=== PATIENT | female | born 1995 | race Caucasian/White ===

== ENCOUNTER 2025-06-13 11:29 | Outpatient (REF) | payer OTHER, SELFPAY ==
[2025-06-13 12:48] LABS: MANUAL DIFF FLAG NO
[2025-06-13 14:04] LABS: Hematocrit 39.6 % (37.0-47.0); Hemoglobin 12.8 g/dl (12.0-16.0); Imm Gran Abs Auto 0.03 X10*3/uL (0.00-0.03); Imm Gran Pct Auto 0.4 % (0.0-0.4); Lymphocytes Absolute Auto 2.4 X10*3/uL (1.2-4.9); Mean Corpuscular HGB Conc 32.3 g/dl (31.0-35.0); Mean Corpuscular Hemoglobin 27.6 pg (27.0-33.0); Mean Corpuscular Volume 85.5 fL (80.0-98.0); NRBC Abs Auto 0.000 X10*3/uL (0.0-0.012); NRBC Pct Auto 0.0 /100WBC (0.0-0.2); Platelet Count 380 X10*3/uL (160-400); Red Blood Count 4.63 X10*6/uL (4.20-5.50); White Blood Count 7.8 X10*3/uL (4.8-10.8)
--- OUTSIDE RECORDS SUMMARY | 2025-06-13 14:59 | XMS_ITS | Encounter Summary ---
Author Organization [facility] Address [address] [place] [address] Care Team Providers Care Biofuels Production Technician Name Role Phone Martha Martínez MD Primary Care Provider U Bowen Lawrence MD Primary Care Provider [phone] Encounter Details Date Type Department Care Team Description 12/19/2018 Release of Information Medical Records [address] [place] [address] Abstract, Provider Social History Tobacco Use Types Packs/Day Years Used Date Smoking Tobacco: Every Day Cigarettes 1 7 Smokeless Tobacco: Never Alcohol Use Standard Drinks/Week Comments No 0 (1 standard drink = 0.6 oz pur e alcohol) Sex Assigned at Date Recorded Not on file documented as of this encounter Plan of Treatment Not on file documented as of this encounter Visit Diagnoses Not on filedocumented in this encounter Care Teams Biofuels Production Technician Relationship Specialty Start Date End Date Martha Martínez MD PCP - General Internal Medicine 04/24/18 Bowen Pearl MD PCP - General Internal Medicine 01/31/24 documented as of this encounter
--- OUTSIDE RECORDS SUMMARY | 2025-06-13 14:59 | XMS_ITS | Encounter Summary ---
Author Organization [facility] Address [address] [place] [address] Care Team Providers Care Supervisor Covering And Lining Name Role Phone Bowen Caba MD Primary Care Provider [phone] Reason for Visit * Reason Onset Date Comments Vaginal Bleeding 06/18/2024 New pt Encounter Details Date Type Department Care Team Description 06/18/2024 Telephone OBGYN - [facility] [address] [place] [address] Tayler Rascon, TERRY [address] [place] [address] Vaginal Bleeding (New pt) Social History Tobacco Use Types Packs/Day Years Used Date Smoking Tobacco: Former Smokeless Tobacco: Never Alcohol Use Standard Drinks/Week Comments Yes 0 (1 standard drink = 0.6 oz pur e alcohol) occ Sex Assigned at Date Recorded Not on file documented as of this encounter Miscellaneous Notes * Telephone Encounter - Mine AnalystErlinda Benedict - 06/18/2024 3:09 PM EDT Pt calling because she has had a period / bleeding since early apr . She has no chief orthoptist. Dr caba her pcp referred her 04-09-24 and when called she declined chief orthoptist appt. Pt states she does have a hx of irregular periods and the only reason she is calling is because she read something that says if you pass clots larger than a quarter call the doctor . Pt states she uses a menstrual cup normally 1 a day but the last couple days she is changing it 2-3x. She is not in pain other than some days light cramping. She denies being on control, med changes , recent plan b , or . Pt advised if she is having heavy vaginal flow with clots larger than golf ball or she becomes symptomatic: sob, dizzy/lightheaded, and/or chest pain she needs to go to ed. Pt states understanding. She is aware bsr will call her to schedule new pt appt. * Telephone Encounter - Lexie Chowdary - 06/18/2024 2:25 PM EDT Chief Complaint/problem: Irregular menses - started bleeding a month ago and has not stopped since.Bleeding is much worse now with large clots. Uses a cup when bleeding and is changing it 3 times a day. Hair is also falling out. Also feeling constantly fatigued. New to OB - last seen in 2017 in [facility]. Referred by provider to get an annual exam earlier this year but she declined. How long has the patient had this problem? 1 month Pt???s MAP EDITOR provider: Tayler Rascon CNM Last menstrual period (LMP) or EDC (due date): N/A documented in this encounter Plan of Treatment Not on file documented as of this encounter Visit Diagnoses Not on filedocumented in this encounter Care Teams Supervisor Covering And Lining Relationship Specialty Start Date End Date Bowen Caba MD PCP - General Internal Medicine 01/31/24 documented as of this encounter
--- OUTSIDE RECORDS SUMMARY | 2025-06-13 14:59 | XMS_ITS | Clinical Summary ---
Author Organization [facility] Address [address] [address] Care Team Providers Care Front Of House Manager Name Role Phone Roger Valdez MD Primary Care Provider Social History Tobacco Use Types Packs/Day Years Used Date Smoking Tobacco: Never Assessed Comments Unknown Sex and Gender Information Value Date Recorded Sex Assigned at Female 10/07/2021 5:46 PM EST Legal Sex Female 1:46 AM EST Gender Identity Not on file Sexual Orientation Not on file Last Filed Vital Signs Vital Sign Reading Time Taken Comments Blood Pressure - - Pulse - - Temperature 37.4 C (99.4 F) 10/15/2019 3:55 PM EST Respiratory Rate 18 10/15/2019 3:55 PM EST Oxygen Saturation 97% 10/15/2019 3:55 PM EST Inhaled Oxygen Concentration - - Weight 49.9 kg (110 lb) 10/12/2019 10:23 PM EST Height 165.1 cm (5' 5 ) 10/12/2019 10:23 PM EST Body Mass Index 18.3 10/12/2019 10:23 PM EST Plan of Treatment Not on file Insurance [place] [place] [id number] Care Teams Front Of House Manager Relationship Specialty Start Date End Date Roger Valdez MD [address] [place] [phone] PCP - General 10/01/21
--- OUTSIDE RECORDS SUMMARY | 2025-06-13 14:59 | XMS_ITS | Encounter Summary ---
Author Organization [facility] Address [address] [place] [address] Care Team Providers Care Nozzle Worker Name Role Phone Martha Martínez MD Primary Care Provider U Bowen Lawrence MD Primary Care Provider [phone] Encounter Details Date Type Department Care Team Description 08/15/2018 Transfer Records Medical Records [address] [place] [address] Abstract, Provider Social History Tobacco Use Types [...] on filedocumented in this encounter Care Teams Nozzle Worker Relationship Specialty Start Date End Date Martha Martínez MD PCP - General Internal Medicine 04/24/18 Bowen Pearl MD PCP - General Internal Medicine 01/31/24 documented as of this encounter
--- OUTSIDE RECORDS SUMMARY | 2025-06-13 14:59 | XMS_ITS | Encounter Summary ---
Author Organization [facility] Address [address] [place] [address] Care Team Providers Care Manager Merchandise Name Role Phone Martha Martínez MD Primary Care Provider U Bowen Lawrence MD Primary Care Provider Encounter Details Date Type Department Care Team Description 02/11/2019 Transfer Records Medical Records [address] [place] [id number] Services, [facility] [address] [place] [address] Social History Tobacco Use Types Packs/Day Years [...] on filedocumented in this encounter Care Teams Manager Merchandise Relationship Specialty Start Date End Date Martha Martínez MD PCP - General Internal Medicine 04/24/18 Bowen Pearl MD PCP - General Internal Medicine 01/31/24 documented as of this encounter
--- OUTSIDE RECORDS SUMMARY | 2025-06-13 14:59 | XMS_ITS | Clinical Summary ---
Author Organization [facility] Address [address] [place] [address] Care Team Providers Care Hydraulic Mechanic Name Role Phone Bowen Pearl MD Primary Care Provider [phone] Allergies Active Allergy Reactions Severity Noted Date Comments Clonidine 09/07/2018 Trazodone Headaches 09/07/2018 Medications Medication Sig Dispensed Refills Start Date End Date Status gabapentin (NEURONTIN) 600 MG tablet Take 1 Tablet by mouth 2 times daily. 0 Active Cholecalciferol (Vitamin D) 50 MCG (1999) Tab Take 1 Tablet by mouth daily. 30 Tablet 5 04/11/2024 Active lorazepam (ATIVAN) 1 MG tablet Take 1 Tablet by mouth every 6 hours as needed for Anxiety. prn 2 Tablet 0 05/22/2024 Active Active Problems Problem Noted Date Plantar fasciitis, bilateral 04/09/2024 Neuropathy 04/09/2024 Asthma, intermittent 07/31/2018 Overview: Albuterol HFA, Qvar 40 History of pyelonephritis 07/31/2018 Opioid abuse 07/03/2018 Overview: On Methadone at [facility]) SHERRY (generalized anxiety disorder) 07/03 Overview: [facility] Major depression 07/03/2018 Overview: [facility] Family History Medical History Relation Name Comments Stroke Father Depression- Anx iety,Alcohol Abuse, Esophageal cancer Brain Cancer Maternal Grandfather Crohn's Disease No Known Problems Maternal Grandmother Bipolar Disorder Mother Crohn's Dis ease, Alcohol abuse No Known Problems Paternal Grandfather um known Stroke Paternal Grandmother multipl e. Dementia Mental Disorder Sister 1 No Known Problems Sister 2 has not he d contact since 2012 No Known Problems Sister 3 has not he d contact since 2012 Relation Name Status Comments Father Maternal Grandfather [...] Assigned at Date Recorded Not on file Last Filed Vital Signs Vital Sign Reading Time Taken Comments Blood Pressure 107/63 04/09/2024 9:20 AM EDT Pulse 78 04/09/2024 9:20 AM EDT Temperature 35.9 C (96.7 F) 04/09/2024 9:20 AM EDT Respiratory Rate 12 07/05/2018 4:26 PM EST Oxygen Saturation 98% 04/09/2024 9:20 AM EDT Inhaled Oxygen Concentration - - Weight 70.5 kg (155 lb 6.4 oz) 04/09/2024 9:20 A M EDT Height 152.4 cm (5') 04/09/2024 9:20 AM EDT Body Mass Index 30.35 04/09/2024 9:20 AM EDT Plan of Treatment Health Maintenance Due Date Last Done Comments Covid-19 Vaccine (#1) 06/09/1994 DTAP/TDAP/TD (1 - Tdap) 2012 PNEUMOCOCCAL VACCINE FOR HIG H RISK PATIENTS (#1) 2012 CERVICAL CANCER SCREENING 12/28/20192016, 12/27/2016 (External Completion) BMI CHECK/ADVISE 08/28/2024 04/09/2024, 07/05/2018 DEPRESSION SCREENING/FOLLOWUP 08/28/2024, 09/07/2018, 09/07/2018 (Completed), Additional history exists SOCIAL NEEDS SCREENING 08/28/2024 INFLUENZA (#1) 2025 09/07/2018 (Refused) BASELINE HEALTH EXAM 18-39 04/09/202904/09, 04/09/2024, 09/07/2018, Additional history exists CHOLESTEROL SCREENING 04/09/2029 04/09/2024 , 09/07/2018, 12/27/2016 (External Completion) Care Teams Hydraulic Mechanic Relationship Specialty Start Date End Date Bowen Pearl MD PCP - General Internal Medicine 01/31/24
--- OUTSIDE RECORDS SUMMARY | 2025-06-13 14:59 | XMS_ITS | Encounter Summary ---
Author Organization [facility] Address [address] [place] [address] Care Team Providers Care Platemaker Name Role Phone Martha Martínez MD Primary Care Provider U Bowen Lawrence MD Primary Care Provider [phone] Encounter Details Date Type Department Care Team Description 07/31/2018 Transfer Records Medical Records [address] [place] [address] Abstract, Provider Social History Tobacco Use Types [...] on filedocumented in this encounter Care Teams Platemaker Relationship Specialty Start Date End Date Martha Martínez MD PCP - General Internal Medicine 04/24/18 Bowen Pearl MD PCP - General Internal Medicine 01/31/24 documented as of this encounter
--- OUTSIDE RECORDS SUMMARY | 2025-06-13 14:59 | XMS_ITS | Encounter Summary ---
Author Organization [facility] Address [address] [place] [address] Care Team Providers Care Metal Fabricator Welder Name Role Phone Bowen Pearl MD Primary Care Provider [phone] Reason for Visit * Reason Onset Date Comments REFERRAL 05/02/2024 Encounter Details Date Type Department Care Team Description 05/02/2024 Telephone OBN - [address] [place] [phone] Bowen Pearl MD [address] [place] [phone] REFERRAL Social History Tobacco Use Types Packs/Day Years Used Date Smoking Tobacco: Former Smokeless Tobacco: Never Alcohol Use Standard Drinks/Week Comments Yes 0 (1 standard drink = 0.6 oz pur e alcohol) occ Sex Assigned at Date Recorded Not on file documented as of this encounter Miscellaneous Notes * Telephone Encounter - Susan Caballero - 05/02/2024 11:40 AM EDT Thank you for your referral to our AR[facility] PAD CEMENTER department, but your patient has declined the referral. documented in this encounter Plan of Treatment Not on file documented as of this encounter Visit Diagnoses Not on filedocumented in this encounter Care Teams Metal Fabricator Welder Relationship Specialty Start Date End Date Bowen Pearl MD PCP - General Internal Medicine 01/31/24 documented as of this encounter
--- OUTSIDE RECORDS SUMMARY | 2025-06-13 14:59 | XMS_ITS | Encounter Summary ---
Author Organization [facility] Address [address] [place] [address] Care Team Providers Care Certified Meeting Professional Name Role Phone Martha Martínez MD Primary Care Provider U Bowen Lawrence MD Primary Care Provider [phone] Encounter Details Date Type Department Care Team Description 07/04/2018 Release of Information Medical Records [address] [place] [address] Abstract, Provider Social History Tobacco Use Types [...] on filedocumented in this encounter Care Teams Certified Meeting Professional Relationship Specialty Start Date End Date Martha Martínez MD PCP - General Internal Medicine 04/24/18 Bowen Pearl MD PCP - General Internal Medicine 01/31/24 documented as of this encounter
[2025-06-13 16:23] LABS: Folate 6.5 ng/mL (> or = 4.0); Vitamin B12 400 pg/mL (200-900)
[2025-06-13 17:14] LABS: Alanine Aminotransferase 14 U/L (0-31); Albumin Level 4.5 g/dL (3.5-5.0); Alkaline Phosphatase 58 U/L (39-117); Anion Gap 14 (12-20); Aspartate Amino Transferase 17 U/L (5-31); Blood Urea Nitrogen 12 mg/dL (9-16); Calcium 9.4 mg/dL (8.4-10.2); Carbon Dioxide 22 mmol/L (22-29); Chloride 107 mmol/L (96-108); Estimated Glomerular Filt Rate > 60; Potassium 4.2 mmol/L (3.3-5.1); Sodium 139 mmol/L (135-145); Total Protein 7.8 g/dL (6.5-8.0)
[2025-06-14 09:43] LABS: Lyme Abs Screen <0.90 index
[2025-06-18 14:44] LABS: Anti Nuclear Antibody Screen POSITIVE (NEGATIVE); Anti Nuclear Antibody Titer 1:160 titer
== END 2025-06-13 11:30 | disposition home or self-care (01) ==
LOC: HO.LAB 11:29
PROVIDERS: PCP Student in an Organized Health Care Education/Training Program; Visit Provider Registered Nurse
DX: G37.9 Demyelinating disease of central nervous system, unspecified (principal); H53.9 Unspecified visual disturbance; Z79.899 Other long term (current) drug therapy; Z01.84 Encounter for antibody response examination
CPT/HCPCS: 36415; 80053; 82607; 82746; 84443; 85025; 85652; 86038; 86039; 86140; 86617; 86618

== ENCOUNTER 2025-06-13 11:29 | Outpatient (AMB) | payer OTHER, SELFPAY ==
--- NOTE | 2025-06-13 11:52 | MHC.OFFVIS ---
Intake Visit Reasons: Req to be seen by DONOR RELATIONS COORDINATOR/ Last seen Dr Goodrich 12/16/24 Allergies clonidine Allergy (Unknown, Verified 06/13/25 11:52) Unknown trazodone Allergy (Unknown, Verified 06/13/25 11:52) Unknown Medication List - Last Reconciled 06/13/25 by Sweta Hernandez CNP gabapentin 600 mg PO BID naproxen 500 mg PO BID norelgestromin-ethin.estradiol 150-35 mcg/24 hr 1 patch transdermal Q3D simvastatin 20 mg PO BEDTIME HPI Comments Details: 29-year-old RH woman initially seen in 11/2024 with c/o bilateral arm burning sensation that started around 2018 and visual symptom of entire field of vision like analog TV static, even with eyes closed, worsening since 2022. She had seen neurologists and had testing done in the past, including brain MRI and nerve conduction studies that were apparently negative. She was here with worsening parasethesias and visual symptoms over the last few months. She did not have testing done that was ordered at last appointment. She says when the burning sensation first started, it affected bilateral upper arms and thighs, but thigh pain subsided and was then primarily affecting lateral part of arms, L > R. Burning sensation was now affecting her face, particularly the left side, and above lip and forehead. The burning sensation would come and go, but happened every day. Gabapentin helped, but she was finding twice a day dosing was not working as well anymore and she was sometimes having to take additional 300mg in the afternoon to help manage pain. She had some numbness and tingling in hands and feet everyday that would come and go. Sugar or alcohol may make symptoms worse. Visual disturbance described as TV static continued, but also included shadowy areas, rippling when looking at objects, and episodic movement distortions. She reports that previous eye exams have not found any structural or ocular causes for symptoms. Sleep was up and down. Mood was okay, but admits she can be irritable at times. 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 She was currently being treated for R plantar fasciitis and had R foot MRI before starting injections. She had copy of report with her, and results are below. 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 She also reports family history of autoimmune conditions - Raynaud's, scleroderma, arthritis [facility] Medical History (Updated 06/13/25 @ 12:10 by Sweta Hernandez CNP) Visual snow syndrome Neuropathy Somatization disorder Review of Systems Const Denies chills, Denies daytime sleepiness, Reports difficulty sleeping, Denies fatigue, Denies fever(s), Denies frequent falls, Denies headache(s), Denies increased appetite, Denies poor appetite, Denies snoring, Denies weakness, Denies weight gain and Denies weight loss Eyes Reports as per HPI ENT Denies vertigo, Denies dizziness and Denies headache(s) Card Denies chest pain at rest, Denies chest pain with activity, Denies syncope, Denies leg edema and Denies palpitations Resp Denies snoring GI Denies constipation, Denies heartburn, Denies diarrhea and Denies nausea Denies urinary frequency, Denies urinary incontinence and Denies urinary urgency Musc Denies abnormal gait, Reports numbness and Reports tingling Skin/Breast Denies dry skin and Denies rash Neuro Denies abnormal gait, Denies vertigo, Denies dizziness, Denies syncope, Denies frequent falls, Denies headache(s), Denies lack of coordination, Reports memory loss, Reports numbness, Denies restless legs, Denies seizure-like activity, Reports tingling, Reports paresthesias, Denies tremor(s), Denies weakness and Reports other (balance difficulty) Psych Reports anxiety, Denies depression, Denies auditory hallucinations, Reports memory loss, Denies visual hallucinations and Denies suicidal ideation Endo Denies fatigue and Denies palpitations Physical Exam Const Other: General Appearance:? normal, in no acute distress. Skin:? no rashes, no significant birthmarks. Heart:? S1, S2 normal, no murmurs. Lungs:? clear anteriorly and posteriorly. Extremities:? no edema. Psych:? alert, oriented, cognitive function intact, cooperative with exam. Neuro Other: Mental Status:?Normal attention, orientation, memory and affect.? Cranial Nerves:?Pupils are equal, round and reactive to light. External occular muscles are intact. Visual damon are full. Face is symmetrical. Facial sensations are normal. Tongue is midline. Palate elevates symmetrically. Shoulder shrugging is normal. Hearing to bedside conversation is normal. Sensory Exam:?....? Coordination:?No ataxia,?no titubation.? Gait Exam: Within normal limits. Cerebellar Signs:?Vajltf-na-ibgr is okay. Extrapyramidal System:?No tremor, rigidity with normal facial expressions.? Pronator Drift:?Not present.? Involuntary Movements:?No tremors seen.? Speech:?Normal.? Results Reviewed Results Reviewed: MRI R foot 03/18/2025: thickening and high signal of the plantar fascia with surrounding edema compatible with plantar fasciitis. increased size and signal of the medial plantar nerve suggesting neuritis. No mass or fluid collection seen within the tarsal tunnel. High signal within the flexor digitorum brevis muscle may be related to plantar fasciitis or could reflect developing atrophy, could also be secondary to medication injection. Posterior tibial tendinosis without tear (reported) Assessment & Plan Assessment & Plan (1) Demyelinating disease: Code(s): G37.9 - Demyelinating disease of central nervous system, unspecified Category: Medical Plan: Brain MRI W&WO contrast ordered r/o demyelinating disease Reviewed labs ordered Discussed NCV/EMG UE and LE, declining at this time (she reports having test done multiple times in the past which caused discomfort and apparently did not reveal any findings). Increase gabapentin 600mg 1 tablet twice a day and 1/2 tablet midday. (2) Paresthesia: Code(s): R20.2 - Paresthesia of skin Category: Medical (3) Visual changes: Code(s): H53.9 - Unspecified visual disturbance Category: Medical Plan . Orders: Orders MR head/brain wo/w con Today G37.9 - Demyelinating disease of central nervous system, unspecified C Reactive Protein Today G37.9 - Demyelinating disease of central nervous system, unspecified BHARGAVI Reflex Titer and Pattern Today G37.9 - Demyelinating disease of central nervous system, unspecified Lyme IgG/IgM w/reflex to WB Today G37.9 - Demyelinating disease of central nervous system, unspecified Complete Blood Count Auto Diff Today G37.9 - Demyelinating disease of central nervous system, unspecified Comprehensive Met. Panel Today G37.9 - Demyelinating disease of central nervous system, unspecified TSH reflex Free T4 Today G37.9 - Demyelinating disease of central nervous system, unspecified Vitamin B12 and Folate Today G37.9 - Demyelinating disease of central nervous system, unspecified Erythrocyte Sedimentation Rate Today G37.9 - Demyelinating disease of central nervous system, unspecified Medications: Changed From gabapentin 600 mg PO BID 120 tabs 0RF To gabapentin 600 mg orally 1 tablet twice a day and 1/2 tablet midday; 225 tabs 1RF 90 days Coding Level of Care Code Est Pt Level 4 (90089) Diagnoses Demyelinating disease G37.9 Paresthesia R20.2 Visual changes H53.9
--- OUTSIDE RECORDS SUMMARY | 2025-06-13 14:16 | XMS_ITS | Patient Health Record ---
Author Organization [facility] [address] [place] [address] [address] [address] [address] [place] [id number] Support Name Relationship Address Phone Nurys Yaneth Guarantor Unknown [phone] Allergies No Known Allergies Reason For Referral No Information Medications Medication SIG (Take, Route, Frequency, Duration) Notes Start Date End Date Status Gabapentin Active Suboxone Active SEROquel Active Problems Problem Type SNOMED Code ICD Code Onset Dates Problem Status W/U Status Risk Notes Problem Skin sensation disturbance (42965903) Paresthesia of left arm and leg (R20.2) Active confirmed 25 year old female who presents for evaluation after subacute onset of left arm and leg paresthesias which some and go since July,. Neurologic exam is largely non focal with exception of decreased pin prick in the left upper extremity, more so on the medial aspect around the T1-C8 dermatomes. THere is also burning paresthesia of the left upper leg involving L2-L3 dermatomes. no extension into the feet. EMG is negative of both the leg and arm MRI of the entire neuro axis w/w/o contrast reportedly does not show any demyelination unclear etiology of symptoms consider referral to senior clinical data coordinator for ?fibromyalgia Plan Of Treatment Pending Test Test Name Order Date LYME DISEASE AB W/REFL TO BLOT (IGG, IGM ) 09/29/2021 BHARGAVI MULTIPLEX W/REFLEX 11 AB CASCADE 09/2021 Insurance Providers Payer Name Payer Address Payer Phone Subscriber Number Group Number Insured Name Patient Relationship to Insured Coverage Start Date Coverage End Date [facility] [address] [address] [place] [phone] [id number] Yaneth Estrada Self - patient is the insured Medical (General) History Medical History History ICD Code anxiety Hospitalization History Reason Date(Month/Year) lyme disease with spinal meningitis kidney infection 2010
--- OUTSIDE RECORDS SUMMARY | 2025-06-13 14:16 | XMS_ITS | Clinical Summary ---
Author Organization [facility] Address [address] [place] [address] Phone Care Team Providers Care Gravity Prospecting Supervisor Name Role Phone Bowen Pearl MD Primary Care Provider [phone] Allergies Active Allergy Reactions Criticality Noted Date Comments Clonidine 09/07/2018 Trazodone Headache 09/07/2018 Medications cholecalcifero l (VITAMIN D-3) 50 mcg (2,000 unit) tablet Route: Take 1 Tablet by mouth daily. - Oral 04/11/20 24 Active gabapentin (NEURONTIN) 600 mg tablet Route: Take 1 Tablet by mouth 2 times daily. - Oral Active simvastatin (ZOCOR) 20 mg tablet Take 1 tablet (20 mg total) by mouth at bedtime. 30 each 5 09/02/19 25 Active minoxidiL (LONITEN) 2.5 mg tablet Take 1 tablet (2.5 mg total) by mouth 1 (one) time each day. Active norelgestromin -ethinyl estradiol (ORTHO EVRA) 150-35 mcg/[address] 1 patch on the skin 1 (one) time per week. Apply 1 patch each week. 16 patch 4 11/28/19 25 026 Active Suboxone 8-2 mg per SL film PLACE 1 FILM SUBLINGUALLY ONCE A DAY 12/10/19 25 Active LORazepam (ATIVAN) 1 mg tablet Take 1-2 tablets (1-2 mg total) by mouth See administration instructions. Take 30 minutes prior to procedure. 2 tablet 06/02/20 25 025 Active LORazepam (ATIVAN) 1 mg tablet Take 1 tablet (1 mg total) by mouth every 8 (eight) hours if needed for anxiety (As needed for dental procedure) for up to 6 doses. Route: Take 1 Tablet by mouth every 6 hours as needed for Anxiety. prn - Oral Max Daily Amount: 3 mg 6 tablet 03/24/20 25 025 Discontinu ed(Reorder ) naproxen (NAPROSYN) 500 mg tablet Take 1 tablet (500 mg total) by mouth 2 (two) times a day. 60 each 04/24/20 25 025 LORazepam (ATIVAN) 1 mg tablet Take 1 tablet (1 mg total) by mouth every 8 (eight) hours if needed for anxiety (As needed for dental procedure) for up to 6 doses. Route: Take 1 Tablet by mouth every 6 hours as needed for Anxiety. prn - Oral Max Daily Amount: 3 mg 6 tablet 05/27/20 25 025 Discontinu ed(Dupdrissa te order) Hospital, Clinic, or Other Facility Administered Medication Ordered Dose Route Frequency Start Date End Date Status dexAMETHasone (PF) (DECADRON) injection 5 mgIndications:Planta r fascial fibromatosis 5 mg IAtc Once 07/16/2024 Active triamcinolone acetonide (KENALOG-40) 40 mg/mL injection 40 mgIndications:Planta r fascial fibromatosis 40 mg IAtc Once 07/16/2024 Active lidocaine (PF) (XYLOCAINE-MPF) 1 % injection 0.5 mLIndications:Planta r fascial fibromatosis .5 mL Once PRN Procedure 06/04/2025 06/04/2025 Ended lidocaine (PF) (XYLOCAINE-MPF) 1 % injection 0.5 mLIndications:Planta r fascial fibromatosis .5 mL Once PRN Procedure 06/04/2025 06/04/2025 Ended triamcinolone acetonide (KENALOG-40) 40 mg/mL injection 20 mgIndications:Planta r fascial fibromatosis 20 mg Once PRN Procedure 06/04/2025 06/04/2025 Ended triamcinolone acetonide (KENALOG-40) 40 mg/mL injection 20 mgIndications:Planta r fascial fibromatosis 20 mg Once PRN Procedure 06/04/2025 06/04/2025 Ended Active Problems Problem Noted Date Diagnosed Date Neuropathy 05/27/2024 Plantar fasciitis, bilateral 05/27/2024 SHERRY (generalized anxiety disorder) 07/03/2018 Overview (05/27/2024): BHN Opioid abuse ([facility] V24, [facility] V28) 07/03/20 18 Overview (05/27/2024): On Methadone at [facility]) Depression 12/16/2016 Overview (08/29/2024): BHN NEC Resolved Problems Problem Noted Date Diagnosed Date Resolved Date Asthma, intermittent 07/31/2018 025 Overview (05/27/2024): Albuterol HFA, Qvar 40 Cigarette smoker 12/16/2016 08/29/2024 Encounters Date Type Department Care Team Description 06/04/2025 3:30 PM EDT Office Visit Orthopedic Surgery [facility] [address] [phone] César Reed DPM Plantar fascial fibromatosis (Primary Dx); Equinus contracture of ankle; Acquired hallux valgus of left foot; Acquired hallux valgus of right foot 04/24/2025 3:30 PM EDT Office Visit Orthopedic Surgery - [place] [address] [phone] César Reed, DPM Plantar fascial fibromatosis (Primary Dx); Equinus contracture of ankle 04/16/2025 6:00 PM EDT Treatment [facility] [address] [phone] Jeri Jacobo PT Plantar fascial fibromatosis (Primary Dx) 03/18/2025 1:45 PM EDT Office Visit Orthopedic Surgery [facility] [address] [phone] Reed, Christopher M, DPM Plantar fascial fibromatosis (Primary Dx); Equinus contracture of ankle; Acquired hallux valgus of left foot 03/17/2025 5:59 PM EDT - 03/17/2025 11:59 PM EDT Hospital Encounter [facility] MRI [address] [place] [id number] Plantar fascial fibromatosis Discharge Disposition: Home or Self Care 03/17/2025 5:55 PM EDT - 03/17/2025 11:59 PM EDT Hospital Encounter [facility] MRI [address] [place] [phone] Plantar fascial fibromatosis Discharge Disposition: Home or Self Care from Last 3 Months Surgical History Surgery Date Site/Laterality Comments OTHER SURGICAL HISTORY PROCEDURE: DENIES PREVIOUS SURGERY Medical History Medical History Date Comments Opioid abuse (CMS/HCC V24, C MS/HCC V28) 07/03/2018 DX:Opioid abuse (HCC); COMME NT: On Methadone at [facility]) SHERRY (generalized anxiety disorder) 07/03/2018 DX:SHERRY (generalized anxiety disorder) Major depression 07/03/2018 DX:Major depres alin History of pyelonephritis 07/31/2018 DX:His tory of pyelonephritis Asthma, intermittent 07/31/2018 DX:Asthma, intermittent; COMMENT: Albuterol HFA, Qvar 40 Family History Medical History Relation Name Comments Stroke Father Depression- Anx iety,Alcohol Abuse, Esophageal cancer Brain cancer Maternal Grandfather Crohn's Disease No Known Problems Maternal Grandmother Bipolar disorder Mother Crohn's Dis ease, Alcohol abuse No Known Problems Paternal Grandfather um known Stroke Paternal Grandmother multipl e. Dementia Mental illness Sister 1 No Known Problems Sister 2 has not he d contact since 2012 No Known Problems Sister 3 has not he d contact since 2012 Breast cancer Neg Hx Colon cancer Neg Hx Kidney cancer Neg Hx Ovarian cancer Neg Hx Pancreatic cancer Neg Hx Uterine cancer Neg Hx Relation Name Status Comments Father Maternal Grandfather Maternal Grandmother Mother Alive Paternal Grandfather Paternal Grandmother Sister 1 Alive Sister 2 Alive Sister 3 Alive Social History Tobacco Use Types Packs/Day Years Used Date Smoking Tobacco: Former Smokeless Tobacco: Never Alcohol Use Standard Drinks/Week Comments Yes 0 (1 standard drink = 0.6 oz pur e alcohol) Comments No Sex and Gender Information Value Date Recorded Sex Assigned at Female 06/19/2024 8:10 AM EDT Legal Sex Female 8:11 PM EST Gender Identity Not on file Sexual Orientation Not on file Obstetrics History Para Term AB IAB SAB Ectopic Multiple Livin g Live Births 0 0 0 0 0 0 0 0 Last Filed Vital Signs Vital Sign Reading Time Taken Comments Blood Pressure 122/85 11/27/2024 11:44 AM EDT Pulse 76 11/27/2024 11:44 AM EDT Temperature 37 C (98.6 F) 07/11/2024 2:02 PM EST Respiratory Rate 16 11/27/2024 11:44 AM EDT Oxygen Saturation 99% 10/10/2024 3:59 PM EST Inhaled Oxygen Concentration - - Weight 68 kg (150 lb) 03/18/2025 2:07 PM EDT Height 152.4 cm (5') 03/18/2025 2:07 PM EDT Body Mass Index 29.29 03/18/2025 2:07 PM EDT Plan of Treatment Upcoming Encounters Date Type Department Care Team (Late st Contact Info) Description 06/19/2025 11:00 AM EDT Office Visit Orthopedic Surgery - [place] [address] [phone] César Reed DPM [address] [phone] 07/23/2025 3:00 PM EST Office Visit [facility] [address] [phone] Dean Soler MD [address] [phone] Health Maintenance Due Date Last Done Comments DTaP,Tdap,and Td Vaccines (1 - Tdap) 2012 Hepatitis A Vaccines (1 of 2 - Risk 2-dose series) 2012 Hepatitis B Vaccines (1 of 3 - 19+ 3-dose series) 2012 HPV Vaccines (1 - 3-dose SCD M series) 2020 Social Influencers of Health Screening 05/27/2024 Depression Screening 08/28/2024 COVID-19 Vaccine (1 - 2023-2 5 season) 2025 Influenza Vaccine (#1) 2025 Cervical Cancer Screening: HPV 08/29/2029 08/29/2024 Cholesterol Screening (Lipid Panel) 08/29/2029 08/29/2024, 04/09/2024, 04/09/2024 RSV Immunization Adult Patients (1 - 1-dose 75+ series) 2068 HIV Screening Completed 09/07/2018 Hepatitis C Screening Completed 04/09/2024 HIB Vaccines Aged Out No longer eligi ble based on patient's age to complete this topic IPV Vaccines Aged Out No longer eligi ble based on patient's age to complete this topic MMR Vaccines Aged Out No longer eligi ble based on patient's age to complete this topic Meningococcal ACWY Vaccine Aged Out N o longer eligible based on patient's age to complete this topic Meningococcal B Vaccine Aged Out No l onger eligible based on patient's age to complete this topic Pneumococcal Vaccine: Pediatrics (0 to 5 Years) and At-Risk Patients (6 to 49 Years) Aged Out No longer eligible b ased on patient's age to complete this topic RSV Immunization Patients Under 20 months Aged Out No longer eligible b ased on patient's age to complete this topic Varicella Vaccines Aged Out No longer eligible based on patient's age to complete this topic Procedures Procedure Name Priority Date/Time Associated Diagnosis Comments INJECTION TENDON OR LIGAMENT Routine 06/04/2025 3:30 PM EDT Plantar fascial fibromatosis INJECTION TENDON OR LIGAMENT Routine 06/04/2025 3:30 PM EDT Plantar fascial fibromatosis MR FOOT WO CONTRAST RIGHT Routine 03/17/2025 7:23 PM EDT Plantar fascial fibromatosis MR FOOT WO CONTRAST LEFT Routine 03/17/2025 6:55 PM EDT Plantar fascial fibromatosis LIPID PANEL WITH REFLEX TO DIRECT LDL Routine 08/29/2024 2:59 PM EST Encounter for lipid screening for cardiovascular disease HPV WITH REFLEX GENOTYPE Routine 08/29/2024 2:53 PM EST Women's annual routine gynecological examination HEPATITIS C SCREENING Routine 04/09/2024 HIV SCREENING Routine 09/07/2018 from Last 3 Months or Most Recently Relevant to Health Maintenance Results * Injection tendon or ligament (06/04/2025 3:30 PM EDT) César Ramos DPM - 06/04/2025 3:30 PM EDT César Reed DPM 06/04/2025 4:38 PM Injection tendon or ligament Indications: pain Details: 25 G needle Medications: 0.5 mL lidocaine (PF) 1 %; 20 mg triamcinolone acetonide 40 mg/mL Informed Consent: Site: Foot ligament tendon César Reed DPM IN CLINIC/BEDSIDE ORDERAB LES Final Result * Injection tendon or ligament (06/04/2025 3:30 PM EDT) César Ramos DPM - 06/04/2025 3:30 PM EDT César Reed DPM 06/04/2025 4:38 PM Injection tendon or ligament Indications: pain Details: 25 G needle Medications: 0.5 mL lidocaine (PF) 1 %; 20 mg triamcinolone acetonide 40 mg/mL Informed Consent: Site: Foot ligament tendon César Reed DPM IN CLINIC/BEDSIDE ORDERAB LES Final Result * MR Foot wo Contrast Right (03/17/2025 7:23 PM EDT) Anatomical Region Laterality Modality Lower Extremities, Foot Right Magnetic Resonance 03/18/2025 8:37 PM EDT Impressions 03/18/2025 8:41 PM EDT Thickening and high signal of the plantar fascia with surrounding edema compatible with plantar fasciitis. Increased size and signal of the medial plantar nerve suggesting neuritis. No mass or fluid collection seen within the tarsal tunnel. High signal within the flexor digitorum brevis muscle may be related to plantar fasciitis or could reflect developing atrophy. This could also be secondary to medication injection. Posterior tibial tendinosis without tear. -------- FINAL REPORT -------- Dictated By: KRISTIAN KHAN Dictated Date: 03/18/2025 20:37 ET Assigned Physician: KRISTIAN KHAN Reviewed and Electronically Signed By: KRISTIAN KHAN Signed Date: 03/18/2025 20:41 ET Workstation ID: [id number] Transcribed By: Self Edit Transcribed Date: 03/18/2025 20:37 ET Narrative 03/18/2025 8:41 PM EDT PROCEDURE: Right foot MRI INDICATION: Chronic fasciitis TECHNIQUE: Multiplanar, multisequence MRI of the right foot Without contrast. COMPARISON: No priors available. FINDINGS: No fracture or suspicious marrow replacing lesion. Tibiotalar and subtalar articular cartilage is maintained. No joint effusions. Lisfranc ligament complex and intermetatarsal ligaments are intact. Ankle ligaments are intact. Peroneal tendons are intact. Flexor and extensor tendons are intact. Posterior tibial tendinosis without tear. Achilles tendon is intact. Plantar fascia is thickened and high in signal with surrounding edema in the plantar subcutaneous fat. There is edema in the soft tissues along the plantar aspect of the calcaneus and extending into the medial aspect of the hindfoot. Edema is predominantly within the flexor digitorum brevis muscle, extending into the abductor digit minimi muscle. There is increased size in signal of the medial plantar nerve. No mass or fluid collection is seen within the tarsal tunnel. Sinus tarsus is normal in signal. No soft tissue mass or fluid collection. Procedure Note Kristian Khan MD - 03/18/2025 PROCEDURE: Right foot MRI INDICATION: Chronic fasciitis TECHNIQUE: Multiplanar, multisequence MRI of the right foot Withoutcontrast. COMPARISON: No priors available. FINDINGS: No fracture or suspicious marrow replacing lesion. Tibiotalar and subtalar articular cartilage is maintained. No jointeffusions. Lisfranc ligament complex and intermetatarsal ligaments are intact. Ankleligaments are intact. Peroneal tendons are intact. Flexor and extensor tendons are intact.Posterior tibial tendinosis without tear. Achilles tendon is intact. Plantar fascia is thickened and high in signal with surrounding edema inthe plantar subcutaneous fat. There is edema in the soft tissues along the plantar aspect of thecalcaneus and extending into the medial aspect of the hindfoot. Edema ispredominantly within the flexor digitorum brevis muscle, extending intothe abductor digit minimi muscle. There is increased size in signal of the medial plantar nerve. No mass orfluid collection is seen within the tarsal tunnel. Sinus tarsus is normalin signal. No soft tissue mass or fluid collection. IMPRESSION: Thickening and high signal of the plantar fascia with surrounding edemacompatible with plantar fasciitis. Increased size and signal of the medial plantar nerve suggesting neuritis.No mass or fluid collection seen within the tarsal tunnel. High signal within the flexor digitorum brevis muscle may be related toplantar fasciitis or could reflect developing atrophy. This could also besecondary to medication injection. Posterior tibial tendinosis without tear. -------- FINAL REPORT -------- Dictated By: KRISTIAN KHAN Dictated Date: 03/18/2025 20:37 ET Assigned Physician: KRISTIAN KHAN Reviewed and Electronically Signed By: KRISTIAN KHAN Signed Date: 03/18/2025 20:41 ET Workstation ID: [id number] Transcribed By: Self Edit Transcribed Date: 03/18/2025 20:37 ET César Reed DPM IMG MRI PROCEDURES Final Result * MR Foot wo Contrast Left (03/17/2025 6:55 PM EDT) Anatomical Region Laterality Modality Lower Extremities, Foot Left Magnetic Resonance 03/18/2025 8:10 PM EDT Addenda Addendum by Kristian Khan MD on 03/18/2025 8:42 PM EDT PROCEDURE: Left foot MRI INDICATION: Chronic fasciitis TECHNIQUE: Multiplanar, multisequence MRI of the left foot Without contrast. COMPARISON: No priors available. FINDINGS: No fracture or suspicious marrow replacing lesion. Tibiotalar and subtalar articular cartilage is maintained. No joint effusions. Lisfranc ligament complex and intermetatarsal ligaments are intact. Ankle ligaments are intact. Peroneal tendons are intact. Flexor and extensor tendons are intact. Achilles tendon is intact. Plantar fascia is intact. There is edema soft tissues along the plantar aspect of the calcaneus and extending into the medial aspect of the hindfoot. There is edema predominantly within the flexor digitorum brevis muscle. There is increased size in signal of the distal tibial nerve and medial plantar nerve. No mass or fluid collection is seen within the tarsal tunnel. Sinus tarsus is normal in signal. Soft tissue edema is seen around the medial aspect of the ankle, partially imaged. No mass or fluid collection. IMPRESSION: Increased size and signal of the distal tibial and medial plantar nerve suggesting neuritis. No mass or fluid collection seen within the tarsal tunnel. High signal within the flexor digitorum brevis muscle may be related to plantar fasciitis or could reflect developing atrophy. This could also be related to medication injection. Prominent subcutaneous edema along the medial aspect of the ankle may be related to contusion -------- ADDENDUM -------- Dictated By: KRISTIAN KHAN Dictated Date: 03/18/2025 20:42 ET Assigned Physician: KRISTIAN KHAN Reviewed and Electronically Signed By: KRISTIAN KHAN Signed Date: 03/18/2025 20:42 ET Workstation ID: [id number] Transcribed By: Self Edit Transcribed Date: 03/18/2025 20:42 ET Impressions 03/18/2025 8:25 PM EDT Increased size and signal of the distal tibial and medial plantar nerve suggesting neuritis. No mass or fluid collection seen within the tarsal tunnel. High signal within the flexor digitorum brevis muscle may be related to plantar fasciitis or could reflect developing atrophy. Prominent subcutaneous edema along the medial aspect of the ankle may be related to contusion -------- FINAL REPORT -------- Dictated By: KRISTIAN KHAN Dictated Date: 03/18/2025 20:10 ET Assigned Physician: KRISTIAN KHAN Reviewed and Electronically Signed By: KRISTIAN KHAN Signed Date: 03/18/2025 20:25 ET Workstation ID: [id number] Transcribed By: Self Edit Transcribed Date: 03/18/2025 20:10 ET Narrative 03/18/2025 8:25 PM EDT PROCEDURE: Left foot MRI INDICATION: Chronic fasciitis TECHNIQUE: Multiplanar, multisequence MRI of the left foot Without contrast. COMPARISON: No priors available. FINDINGS: No fracture or suspicious marrow replacing lesion. Tibiotalar and subtalar articular cartilage is maintained. No joint effusions. Lisfranc ligament complex and intermetatarsal ligaments are intact. Ankle ligaments are intact. Peroneal tendons are intact. Flexor and extensor tendons are intact. Achilles tendon is intact. Plantar fascia is intact. There is edema soft tissues along the plantar aspect of the calcaneus and extending into the medial aspect of the hindfoot. There is edema predominantly within the flexor digitorum brevis muscle. There is increased size in signal of the distal tibial nerve and medial plantar nerve. No mass or fluid collection is seen within the tarsal tunnel. Sinus tarsus is normal in signal. Soft tissue edema is seen around the medial aspect of the ankle, partially imaged. No mass or fluid collection. Procedure Note Kristian Khan MD - 03/18/2025 PROCEDURE: Left foot MRI INDICATION: Chronic fasciitis TECHNIQUE: Multiplanar, multisequence MRI of the left foot Withoutcontrast. COMPARISON: No priors available. FINDINGS: No fracture or suspicious marrow replacing lesion. Tibiotalar and subtalar articular cartilage is maintained. No jointeffusions. Lisfranc ligament complex and intermetatarsal ligaments are intact. Ankleligaments are intact. Peroneal tendons are intact. Flexor and extensor tendons are intact. Achilles tendon is intact. Plantar fascia is intact. There is edema soft tissues along the plantar aspect of the calcaneus andextending into the medial aspect of the hindfoot. There is edemapredominantly within the flexor digitorum brevis muscle. There is increased size in signal of the distal tibial nerve and medialplantar nerve. No mass or fluid collection is seen within the tarsaltunnel. Sinus tarsus is normal in signal. Soft tissue edema is seen around the medial aspect of the ankle, partiallyimaged. No mass or fluid collection. IMPRESSION: Increased size and signal of the distal tibial and medial plantar nervesuggesting neuritis. No mass or fluid collection seen within the tarsaltunnel. High signal within the flexor digitorum brevis muscle may be related toplantar fasciitis or could reflect developing atrophy. Prominent subcutaneous edema along the medial aspect of the ankle may berelated to contusion -------- FINAL REPORT -------- Dictated By: KRISTIAN KHAN Dictated Date: 03/18/2025 20:10 ET Assigned Physician: KRISTIAN KHAN Reviewed and Electronically Signed By: KRISTIAN KHAN Signed Date: 03/18/2025 20:25 ET Workstation ID: [id number] Transcribed By: Self Edit Transcribed Date: 03/18/2025 20:10 ET César Reed DPM IMG MRI PROCEDURES Edited Result - Final * (ABNORMAL) Lipid panel with reflex to direct LDL (08/29/2024 2:59 PM EST) Cholesterol 252(H) 0 - 200 mg/dL LAB CHEMISTRY METHOD 08/29/2024 6:16 PM EST [facility] Triglycerides 100 0 - 150 mg/dL LAB CHEMISTRY METHOD 08/29/2024 6:16 PM EST [facility] HDL 58 >=40 mg/dL LAB CHEMISTRY METHOD 08/29/2024 6:16 PM EST [facility] LDL Calculated 174(H) 0 - 100 mg/dL LAB CHEMISTRY METHOD 08/29/2024 6:16 PM EST [facility] VLDL Cholesterol Dave 20 mg/dL LAB CHEMISTRY METHOD 08/29/2024 6:16 PM EST [facility] Non HDL Chol. (LDL+VLDL) 194(H) <145 mg/dL LAB CHEMISTRY METHOD 08/29/2024 6:16 PM EST [facility] Chol/HDL Ratio 4.3 0.0 - 4.4 LAB CHEMISTRY METHOD 08/29/2024 6:16 PM [facility] Blood Venous blood specimen / Unknown Venipuncture / Unknown 08/29/2024 2:59 PM EST 08/29/2024 2:59 PM EST us Bowen Pearl MD LAB BLOOD ORDERABLES Final Resul t [facility] [address] [place] [address], [place] [phone] * HPV with reflex genotype (08/29/2024 2:53 PM EST) [facility] HPV Negative Negative LAB MICROBIOLOGY METHOD 09/02/2024 2:16 PM EST [facility] Broom Cervix uteri structure / Unknown 08/29/2024 2:53 PM EST 08/30/2024 6:43 AM EST Sia Flowers CNM LAB MOLECULAR DIAGNOSTICS O RDERABLES Final Result [facility] [address] [place] [address], [place] [phone] * Hepatitis C Screening (04/09/2024) Pathologist [facility] Hepatitis C Screening Abstracted Historical Provider HEALTH MAINTENANCE Final Result * HIV Screening (09/07/2018) Pathologist [facility] HIV Screening Abstracted Historical Provider HEALTH MAINTENANCE Final Result from Last 3 Months or Most Recently Relevant to Health Maintenance Insurance [facility] Care Teams Gravity Prospecting Supervisor Relationship Specialty Start Date End Date Bowen Pearl MD 175 [facility] [address] [place] [phone] [facility] - General 01/31/24
== END 2025-06-13 12:19 | disposition home or self-care (01) ==
PROVIDERS: PCP Student in an Organized Health Care Education/Training Program; Visit Provider Registered Nurse
DX: G37.9 Demyelinating disease of central nervous system, unspecified (principal); R20.2 Paresthesia of skin; H53.9 Unspecified visual disturbance
CPT/HCPCS: 99214